=== PATIENT | male | born 1990 | race Caucasian/White ===

== ENCOUNTER 2018-06-15 13:56 | Emergency (ER) | payer MEDICAID | END 2018-06-15 17:20 | disposition home or self-care (01) | LOC: ED 13:56 ==

== ENCOUNTER 2019-08-03 10:57 | Emergency (ER) | payer SELFPAY ==
[~2019-08-03] VITALS: Ht 175.3 cm; Wt 131.5 kg
[2019-08-03 11:01] VITALS: BP 206/121; Ht 175.3 cm; Wt 131.5 kg
== END 2019-08-03 11:34 | disposition home or self-care (01) ==
LOC: ED 10:57
DX: J02.9 Acute pharyngitis, unspecified (principal)